=== PATIENT | female | born 1970 | race Caucasian/White ===

== ENCOUNTER 2024-04-09 16:56 | Observation (INO) | payer SELFPAY ==
[2024-04-09] MEDS: predniSONE 20 MG Tab PO ONE (17:26)
[2024-04-09] MEDS: Albuterol/Ipratropium 3.0-0.5 MG/3 ML Neb Soln NEB ONE (17:27)
[2024-04-09] MEDS ORDERED: Sodium Chloride 0.9% 10 ML Syringe FLUSH PRN (18:37)
[2024-04-09] MEDS: Albuterol 0.083% 2.5 MG/3 ML Neb Soln NEB ONE (20:10)
[2024-04-09 20:51] LABS: BASOPHILS ABSOLUTE AUTO 0.02 K/uL (0.00-0.20); BASOPHILS PERCENT AUTO 0.3 % (0.0-1.0); EOSINOPHILS ABSOLUTE AUTO 0.02 K/uL (0.00-0.45); EOSINOPHILS PERCENT AUTO 0.3 % (0.0-6.0); HEMATOCRIT 42.3 % (37.0-47.0); IMMATURE GRAN ABSOLUTE AUTO 0.03 K/uL (0.00-0.05); IMMATURE GRAN PERCENT AUTO 0.4 % (0.0-0.4); LYMPHOCYTES ABSOLUTE AUTO 2.35 K/uL (1.00-4.80); LYMPHOCYTES PERCENT AUTO 29.7 % (24.0-44.0); MEAN CORPUSCULAR HEMOGLOBIN 28.9 pg (28.0-32.0); MEAN CORPUSCULAR HGB CONC 33.1 g/dL (32.0-36.0); MEAN CORPUSCULAR VOLUME 87.4 fL (83.0-99.0); MEAN PLATELET VOLUME 9.5 fL (9.4-12.3); MONOCYTES ABSOLUTE AUTO 0.24 K/uL (0.00-0.80); NEUTROPHILS ABSOLUTE AUTO 5.26 K/uL (1.80-7.70); NEUTROPHILS PERCENT AUTO 66.3 % (41.0-71.0); PLATELET COUNT,PLT 183 K/uL (150-400); RED BLOOD CELL COUNT 4.84 M/uL (4.10-5.30); WHITE BLOOD CELL COUNT,WBC 7.92 K/uL (3.9-11.3)
[2024-04-09 20:56] LABS: PH,VENOUS 7.4 (7.31-7.41)
[2024-04-09 21:18] LABS: A/G RATIO 0.8 (0.9-1.6); ALBUMIN 3.1 g/dL (3.4-5.0); BILIRUBIN TOTAL 0.4 mg/dL (0.2-1.0); CALCIUM 8.5 mg/dL (8.5-10.1); EST CRCL DRUG DOSING (CG) 50.86 mL/min; POTASSIUM,K 4.1 mmol/L (3.5-5.1)
[2024-04-10 06:14] LABS: BASOPHILS ABSOLUTE AUTO 0.02 K/uL (0.00-0.20); BASOPHILS PERCENT AUTO 0.3 % (0.0-1.0); EOSINOPHILS ABSOLUTE AUTO 0.01 K/uL (0.00-0.45); EOSINOPHILS PERCENT AUTO 0.2 % (0.0-6.0); HEMATOCRIT 39.2 % (37.0-47.0); HEMOGLOBIN 12.7 g/dL (12.0-16.0); IMMATURE GRAN ABSOLUTE AUTO 0.04 K/uL (0.00-0.05); IMMATURE GRAN PERCENT AUTO 0.6 % (0.0-0.4); LYMPHOCYTES ABSOLUTE AUTO 1.19 K/uL (1.00-4.80); LYMPHOCYTES PERCENT AUTO 18.6 % (24.0-44.0); MEAN CORPUSCULAR HEMOGLOBIN 28.5 pg (28.0-32.0); MEAN CORPUSCULAR HGB CONC 32.4 g/dL (32.0-36.0); MEAN CORPUSCULAR VOLUME 87.9 fL (83.0-99.0); MEAN PLATELET VOLUME 9.9 fL (9.4-12.3); MONOCYTES ABSOLUTE AUTO 0.28 K/uL (0.00-0.80); MONOCYTES PERCENT AUTO 4.4 % (0.0-8.0); NEUTROPHILS ABSOLUTE AUTO 4.87 K/uL (1.80-7.70); NEUTROPHILS PERCENT AUTO 75.9 % (41.0-71.0); PLATELET COUNT,PLT 228 K/uL (150-400); RED BLOOD CELL COUNT 4.46 M/uL (4.10-5.30); WHITE BLOOD CELL COUNT,WBC 6.41 K/uL (3.9-11.3)
[2024-04-10 06:44] LABS: A/G RATIO 0.7 (0.9-1.6); ALBUMIN 2.9 g/dL (3.4-5.0); BILIRUBIN TOTAL 0.4 mg/dL (0.2-1.0); CALCIUM 8.9 mg/dL (8.5-10.1); CREATININE 1.1 mg/dL (0.6-1.0); EST CRCL DRUG DOSING (CG) 47.3 mL/min; POTASSIUM,K 4.4 mmol/L (3.5-5.1); PROTEIN TOTAL,TP 6.9 g/dL (6.4-8.2)
[2024-04-10] MEDS ORDERED: Glucagon,Human Recombinant 1 MG Vial IM PRN (06:55)
[2024-04-10] MEDS ORDERED: 50% Dextrose in Water 50 ML Syringe IVPUSH PRN (06:55)
[2024-04-10] MEDS: Insulin Aspart 100 Units/ML 3 ML Pen SUBCUT SCH (07:42)
[2024-04-10 10:33] LABS: HEMOGLOBIN A1C 8.2 %
[2024-04-10] MEDS: Iopamidol 755 MG/ML 500 ML Multipack Bottle IVPUSH STA (14:34)
[2024-04-10] MEDS: Benzocaine/Cetylpyridinium/Menthol Lozenge MUCMEM PRN (16:47)
[2024-04-10] MEDS: Nystatin Topical Powder 15 GM Bottle TOP SCH (16:47)
[2024-04-10] MEDS: Levofloxacin 500 MG Tab PO SCH (21:33)
[2024-04-10] MEDS: Doxycycline 100 MG Cap PO SCH (21:33)
[2024-04-11 11:50] VITALS: BP 137/64; PULSE 72
[2024-04-11] MEDS ORDERED: Levofloxacin 750 MG Tab PO SCH (21:00)
== END 2024-04-11 16:00 | disposition home or self-care (01) ==
LOC: MW.ED 16:56 → MW.MS 04-10 01:11
PROVIDERS: ADMIT Family Medicine; ATTEND Family Medicine
DX: R09.02 Hypoxemia (principal); E11.641 Type 2 diabetes mellitus with hypoglycemia with coma; R05.8 Other specified cough; I10 Essential (primary) hypertension; E66.9 Obesity, unspecified; E78.00 Pure hypercholesterolemia, unspecified; F17.210 Nicotine dependence, cigarettes, uncomplicated; Z79.899 Other long term (current) drug therapy
CPT/HCPCS: 36415; 71046; 71046-26; 71275; 71275-26; 80053; 82803; 82947; 83036; 83735; 84703; 85025; 87428-QW; 93306; 99285; A9270-GY; J1815-GY; J7620-GY; Q9967